=== PATIENT | female | born 1985 | race Caucasian/White ===

== ENCOUNTER → 2016-11-13 | Outpatient (REF) | payer OTHER ==
[~2016-11-13] MED LIST: ANUS2.5C2 PR; COLA100C PO; MILKSUS PO; MOTR200T40 PO; TYLE325T5 PO
== END ==
LOC: M LABDRWCV 16:13
PROVIDERS: ATTEND Physician Assistant
DX: Z87.892 Personal history of anaphylaxis (principal)

== ENCOUNTER 2016-12-13 12:50 | Emergency (ER) | payer OTHER ==
[~2016-12-13 12:50] MED LIST changes: -MOTR200T40 PO; +MOTR200T44 PO
[2016-12-13] MEDS ORDERED: FAMOTIDINE INJ 20MG/2ML VIAL (S0028) As Ordered ONE (13:30)
[2016-12-13] MEDS ORDERED: IPRATROPIUM 0.5MG/ALBUTEROL 2.5MG INH SOL UD 3ML (DUONEB)(J7620) As Ordered ONE ×2 (13:34→13:48)
[2016-12-13 14:08] LABS: BASO % 0.4 % (0.0-1.0); EOS # 0.1 K/mm3 (0.0-0.50); EOS % 0.7 % (0.0-3.0); LARGE UNSTAINED CELL # 0.1 K/mm3 (0.0-0.4); LARGE UNSTAINED CELL % 0.8 % (0.0-4.0); LYMPH # 1.1 K/mm3 (1.5-6.5); LYMPH % 9.7 % (24.0-44.0); MEAN CORPUSCULAR HEMOGLOBIN 30.4 pg (27.0-33.0); MEAN CORPUSCULAR HGB CONC 33.8 g/dl (32.0-36.5); MEAN CORPUSCULAR VOLUME 90.1 fl (80.0-96.0); MONO # 0.3 K/mm3 (0.0-0.8); MONO % 2.9 % (0.0-5.0); NEUTROPHILS # 9.1 K/mm3 (1.8-7.7); NEUTROPHILS % 85.6 % (36.0-66.0); PLATELET COUNT, AUTOMATED 270 k/mm3 (150-450); RED CELL DISTRIBUTION WIDTH 12.2 % (11.5-14.5); WHITE BLOOD COUNT 10.7 K/mm3 (4.0-10.0)
[2016-12-13 14:25] LABS: ANION GAP 8 MEQ/L (8-16); BLOOD UREA NITROGEN 9 MG/DL (7-18); CARBON DIOXIDE LEVEL 27 MEQ/L (21-32); CHLORIDE LEVEL 108 MEQ/L (98-107); CREATININE FOR GFR 0.84 MG/DL (0.55-1.02); GLOMERULAR FILTRATION RATE > 60.0 (>60); GLUCOSE, FASTING 90 MG/DL (70-105); POTASSIUM SERUM 4.1 MEQ/L (3.5-5.1); SODIUM LEVEL 143 MEQ/L (136-145)
--- NOTE | 2016-12-13 14:28 | REP ---
PA and lateral chest: Comparison is 09/20/2016. The lung santillan are clear. The cardiac size is normal The edward, mediastinum, and bony thorax are unremarkable. Impression: Negative PA and lateral chest. There is no interval change. Signed by Filipe Marroquin MD 12/13/2016 02:20 P
--- NOTE | 2016-12-13 15:32 | EDDOCDS ---
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 Onset: The symptoms/episode began/occurred suddenly, 1 hour(s) ago. The patient has a history of a previous allergic reaction. The previous reaction was anaphylactic. Anaphylaxis evaluation, the patient reports or I have noted the following symptoms which indicate a significant risk of anaphylaxis: no signs or symptoms of anaphylaxis were noted. Adult Sepsis Screening: The patient does not have new or worsening altered mentation. Patient's respiratory rate is less than 22. Systolic blood pressure is greater than 100. Patient has a qSOFA score of 0- Negative Sepsis Screen. Suicide/Homicide risk assessment- the patient denies having any suicidal and/or homicidal ideations and does not present with any other emotional, behavioral or mental health complaints. 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 Transition of care: patient was not received from another setting of care. 13:02 Acuity: ANJALI Level 3 ml6 13:02 Acuity: ANJALI Level 4 ml6 13:02 Method Of Arrival: Ambulance ml6 Triage Assessment: 13:02 General: Appears in no apparent distress, Behavior is anxious, cooperative. Pain: ml6 Denies pain. HIV screening NA for this visit Offered previously. Neurological: No deficits noted. Level of Consciousness is awake, alert, Oriented to person, place, time, Import Export Agent are equal bilaterally Moves all extremities. Full function Gait is steady, Speech is normal. Cardiovascular: No deficits noted. Capillary refill < 3 seconds is brisk in bilateral fingers toes Heart tones S1 S2 Edema is absent. Pulses are all present. Rhythm is sinus tachycardia Chest pain is denied. Respiratory: Airway is patent Respiratory effort is even, unlabored, Respiratory pattern is regular, symmetrical, Breath sounds with wheezes expiratory in left lower lobe, right lower lobe, left posterior lower lobe and right posterior lower lobe Reports no respiratory complaints. the patients shortness of breath has resolved. GI: No deficits noted. 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 Claritin 10 mg Oral tab 1 tab once daily (Last dose: 12/13/2016 07:00) 2. ranitidine HCl 150 mg Oral tab 1 tab 2 times per day (Last dose: 12/13/2016 07:00) 3. albuterol sulfate 90 mcg/actuation Nebulizer HFAA 2 puffs every 4-6 hours (Last dose: 12/13/2016 07:00) 4. albuterol sulfate 2.5 mg /3 mL (0.083 %) Nebulizer nebu 3 mL every 8 hours (Last dose: 12/13/2016 07:00) - PMHx: evironmental allergies; - PSHx: none; - Social history: Smoking status: Patient states was never smoker of tobacco. No barriers to communication noted, Speaks appropriately for age. - Family history: Not pertinent. - : The pt / caregiver states he / she is not on anticoagulants. Home medication list is obtained from the patient. - Exposure Risk Screening:: None identified. Screenin:17 Screening information is obtained from the patient. Fall risk: No risks identified. ml6 Assistance ADL's: requires no assistance with activities of daily living. Abuse/DV Screen: The patient / caregiver reports he/she is: not in a situation that causes fear, pain or injury. Nutritional screening: No deficits noted. Advance Directives: Currently, there is no health care proxy. home support is adequate. Assessment: 13:02 General: see triage assessment. Respiratory: Airway is patent Respiratory effort is ml6 even, unlabored, Respiratory pattern is regular, symmetrical, Breath sounds with wheezes expiratory bilaterally. Reports shortness of breath at rest the patients shortness of breath has resolved. 14:05 Reassessment: Patient appears in no apparent distress at this time. Patient states jo3 feeling better. Patient states symptoms have improved. Resting on stretcher in state of comfort. Friend at bedside. . 15:00 General: Appears in no apparent distress, comfortable, Behavior is appropriate for age, jo3 cooperative, pleasant. Neurological: No deficits noted. Level of Consciousness is awake, alert, Oriented to person, place, time. Derm: Skin is pink, warm & dry. Vital Signs: 13:02 BP 143 / 73; Pulse 118; Resp 16; Temp 97.9(O); Pulse Ox 98% on R/A; Weight 56.7 kg (R); ml6 Height 5 ft. 1 in. (154.94 cm); Pain 0/10; 14:15 Pulse 127; Pulse Ox 97% on R/A; ct3 15:19 BP 148 / 72; Pulse 121; Resp 18; Temp 98.9(O); Pulse Ox 97% on R/A; Pain 0/10; dem1 13:02 Body Mass Index 23.62 (56.70 kg, 154.94 cm) ml6 14:15 Pt. walked with pulse oximetry and well tolerated no complaint ct3 Vitals: 13:02 Log In Time N/A - ambulance arrival. ml6 ED Course: 12:51 Patient visited by Agueda Elizabeth, Conveyor Operator. deg 12:51 Patient moved to Waiting deg 12:52 Patient moved to 7 deg 12:59 Sy Anderson MD is Attending Physician. br1 13:02 Inserted peripheral IV: 20gauge IV in right antecubital area Patient tolerated the ml6 procedure well. 13:04 Triage Initiated ml6 13:17 The patient / caregiver is instructed regarding the plan of care and ED course. ml6 13:22 Patient visited by Sy Anderson MD. br1 13:47 Accompanied by Family Member, Patient has correct armband on for positive ct3 identification. Placed in gown. Bed in low position. Call light in reach. Side rails up X2. caterpillar tractor operator on. Pulse ox on. NIBP on. 13:48 Patient visited by Oliva Mello PCA. ct3 14:17 Patient visited by Oliva Mello PCA. ct3 14:52 Patient visited by Sy Anderson MD. br1 14:55 Chest, 2 View (pa\\E\\lat) Returned. EDMS 15:20 Patient visited by Erik Maurice. dem1 15:30 Discontinued IV lock intact, bleeding controlled, pressure dressing applied, No jo3 redness/swelling at site. No procedures done that require assistance. Administered Medications: 13:13 Drug: Famotidine 40 mg [famotidine 10 mg/mL intravenous solution (4 mL)] Route: IVP; jo3 Site: right antecubital; 13:41 Drug: Albuterol-Ipratropium 3 ml [ipratropium-albuterol 0.5 mg-3 mg(2.5 mg base)/3 mL cs15 nebulization soln (3 mL)] Route: Inhalation; 13:51 Drug: Albuterol-Ipratropium 3 ml [ipratropium-albuterol 0.5 mg-3 mg(2.5 mg base)/3 mL cs15 nebulization soln (3 mL)] Route: Inhalation; RT: 13:41 Initial Med Neb Given as ordered. Oxygen is room air. Respiratory: Respiratory effort cs15 is unlabored, Respiratory pattern is shallow breathing Breath sounds are diminished bilaterally. 13:52 Subsequent Med Neb Given as ordered. Respiratory: Breath sounds are diminished cs15 bilaterally. Order Results: Lab Order: CBC with Diff; SPEC'M 12/13/16 13:59 Test: WHITE BLOOD COUNT; Value: 10.7; Range: 4.0-10.0; Abnormal: Above high normal; Units: K/mm3; Status: F Test: RED BLOOD COUNT; Value: 4.68; Range: 4.00-5.40; Units: M/mm3; Status: F Test: HEMOGLOBIN; Value: 14.2; Range: 12.0-16.0; Units: g/dl; Status: F Test: HEMATOCRIT; Value: 42.2; Range: 36.0-47.0; Units: %; Status: F Test: MEAN CORPUSCULAR VOLUME; Value: 90.1; Range: 80.0-96.0; Units: fl; Status: F Test: MEAN CORPUSCULAR HEMOGLOBIN; Value: 30.4; Range: 27.0-33.0; Units: pg; Status: F Test: MEAN CORPUSCULAR HGB CONC; Value: 33.8; Range: 32.0-36.5; Units: g/dl; Status: F Test: RED CELL DISTRIBUTION WIDTH; Value: 12.2; Range: 11.5-14.5; Units: %; Status: F Test: PLATELET COUNT, AUTOMATED; Value: 270; Range: 150-450; Units: k/mm3; Status: F Test: NEUTROPHILS %; Value: 85.6; Range: 36.0-66.0; Abnormal: Above high normal; Units: %; Status: F Test: LYMPH %; Value: 9.7; Range: 24.0-44.0; Abnormal: Below low normal; Units: %; Status: F Test: MONO %; Value: 2.9; Range: 0.0-5.0; Units: %; Status: F Test: EOS %; Value: 0.7; Range: 0.0-3.0; Units: %; Status: F Test: BASO %; Value: 0.4; Range: 0.0-1.0; Units: %; Status: F Test: LARGE UNSTAINED CELL %; Value: 0.8; Range: 0.0-4.0; Units: %; Status: F Test: NEUTROPHILS #; Value: 9.1; Range: 1.8-7.7; Abnormal: Above high normal; Units: K/mm3; Status: F Test: LYMPH #; Value: 1.1; Range: 1.5-6.5; Abnormal: Below low normal; Units: K/mm3; Status: F Test: MONO #; Value: 0.3; Range: 0.0-0.8; Units: K/mm3; Status: F Test: EOS #; Value: 0.1; Range: 0.0-0.50; Units: K/mm3; Status: F Test: BASO #; Value: 0.0; Range: 0.0-0.2; Units: K/mm3; Status: F Test: LARGE UNSTAINED CELL #; Value: 0.1; Range: 0.0-0.4; Units: K/mm3; Status: F Lab Order: [facility]; SPEC'M 12/13/16 13:59 Test: GLUCOSE, FASTING; Value: 90; Range: 70-105; Units: MG/DL; Status: F Test: BLOOD UREA NITROGEN; Value: 9; Range: 7-18; Units: MG/DL; Status: F Test: CREATININE FOR GFR; Value: 0.84; Range: 0.55-1.02; Units: MG/DL; Status: F Test: GLOMERULAR FILTRATION RATE; Value: > 60.0; Range: >60; Status: F Test: SODIUM LEVEL; Value: 143; Range: 136-145; Units: MEQ/L; Status: F Test: POTASSIUM SERUM; Value: 4.1; Range: 3.5-5.1; Units: MEQ/L; Status: F Test: CHLORIDE LEVEL; Value: 108; Range: 98-107; Abnormal: Above high normal; Units: MEQ/L; Status: F Test: CARBON DIOXIDE LEVEL; Value: 27; Range: 21-32; Units: MEQ/L; Status: F Test: ANION GAP; Value: 8; Range: 8-16; Units: MEQ/L; Status: F Test: CALCIUM LEVEL; Value: 9.0; Range: 8.5-10.1; Units: MG/DL; Status: F Test Note: ; Units are mL/min/1.73 m2 Chronic Kidney Disease Staging per NKF: Stage I & II GFR >=60 Normal to Mildly Decreased Stage III GFR 30-59 Moderately Decreased Stage IV GFR 15-29 Severely Decreased Stage V GFR <15 Very Little GFR Left ESRD GFR <15 on CLOTHING SUPERVISOR Radiology Order: Chest, 2 View (pa\\E\\lat) Test: Chest, 2 View (pa\\E\\lat) REASON FOR EXAMINATION: Shortness of Breath; PA and lateral chest:; ; Comparison is 09/20/2016.; ; The lung santillan are clear. The cardiac size is normal; ; The edward, mediastinum, and bony thorax are unremarkable.; ; Impression:; ; Negative PA and lateral chest. There is no interval change.; ; ; Signed by; Filipe Marroquin MD 12/13/2016 02:20 P; Outcome: 14:54 Discharge ordered by Provider. br1 15:30 Discharge Assessment: Patient awake, alert and oriented x 3. No cognitive and/or jo3 functional deficits noted. Patient verbalized understanding of disposition instructions. patient administered narcotics - no. The following High Risk Discharge criteria are identified: None. Discharged to home ambulatory, with friend. Condition: stable Condition: improved. Discharge instructions given to patient, Instructed on discharge instructions, follow up and referral plans. medication usage, Demonstrated understanding of instructions, medications, Pt was receptive of discharge instructions/ teaching. No special radiology studies were completed. Property sent home with patient. 15:32 Patient left the ED. jo3 Signatures: Dispatcher [employer] EDMS Agueda Elizabeth, Conveyor Operator Unit deg Hillary Lal,RN RN jo3 Sy Anderson MD MD br1 Rodriguez Shaw, JASSI RN ml6 Oliva Mello, INDEPENDENT BEAUTY CONSULTANT INDEPENDENT BEAUTY CONSULTANT ct3 Josafat, Erik dem1 Santhosh Denis,RT RT cs15 MTDD
--- NOTE | 2016-12-13 15:32 | EDDOCDS ---
Physician Documentation [facility] Name: Sabi Greene Age: 31 yrs Sex: Female : 1985 Arrival Date: 12/13/2016 Time: 12:50 Bed 7 Private MD: Disposition: 12/13/16 14:54 Discharged to Home/Self Care. Impression: Allergic urticaria. - Condition is Stable. - Discharge Instructions: Hives. - Medication Reconciliation, Local Pharmacy Hours form. - Follow up: Private Physician; When: 2 - 3 days; Reason: Recheck today's complaints. - Problem is new. - Symptoms are resolved. - Notes: You were seen in the ED for rash and shortness of breath concerning for allergic reaction. Bloodwork, EKG of the heart and chest Xray showed no other acute findings. You were treated and improved with medications. As you are feeling better you may return home. Avoid the building you were in as it was a possible source of environmental allergy. You may take Benadryl as needed every 6 hours for rash or itching. Call your primary doctor to arrange to be seen for recheck in the office. Return to the ED for any return of trouble breathing, swelling of the lips, tongue, or throat, or any other concerns. Historical: - Allergies: Aspirin; mold (Anaphylaxis); - Home Meds: 1. Claritin 10 mg Oral tab 1 tab once daily (Last dose: 12/13/2016 07:00) 2. ranitidine HCl 150 mg Oral tab 1 tab 2 times per day (Last dose: 12/13/2016 07:00) 3. albuterol sulfate 90 mcg/actuation Nebulizer HFAA 2 puffs every 4-6 hours (Last dose: 12/13/2016 07:00) 4. albuterol sulfate 2.5 mg /3 mL (0.083 %) Nebulizer nebu 3 mL every 8 hours (Last dose: 12/13/2016 07:00) - PMHx: evironmental allergies; - PSHx: none; - Social history: Smoking status: Patient states was never smoker of tobacco. No barriers to communication noted, Speaks appropriately for age. - Family history: Not pertinent. - : The pt / caregiver states he / she is not on anticoagulants. Home medication list is obtained from the patient. - Exposure Risk Screening:: None identified. RECORDS MANAGEMENT COORDINATOR: 12/13 13:02 LMP 11/21/2016 ml6 Vital Signs: 13:02 BP 143 / 73; Pulse 118; Resp 16; Temp 97.9(O); Pulse Ox 98% on R/A; Weight 56.7 kg / ml6 125 lbs (R); Height 5 ft. 1 in. (154.94 cm); Pain 0/10; 14:15 Pulse 127; Pulse Ox 97% on R/A; ct3 15:19 BP 148 / 72; Pulse 121; Resp 18; Temp 98.9(O); Pulse Ox 97% on R/A; Pain 0/10; dem1 13:02 Body Mass Index 23.62 (56.70 kg, 154.94 cm) ml6 14:15 Pt. walked with pulse oximetry and well tolerated no complaint ct3 MDM: 13:23 IV Saline Lock ordered. br1 13:23 Director Content Marketing/Pulse Ox/q 30 min VS ordered. br1 13:23 Famotidine 40 mg IVP once ordered. br1 13:23 Albuterol-Ipratropium 3 ml Inhalation once ordered. br1 13:23 Call Respiratory ordered. br1 13:24 Call Respiratory complete. deg 13:24 CBC with Diff Ordered. EDMS 13:24 BMP Ordered. EDMS 13:25 Chest, 2 View (pa\E\lat) Ordered. EDMS 13:26 ECG WITH READING ER PHYS+CARDIAG ordered. EDMS 13:48 Albuterol-Ipratropium 3 ml Inhalation once ordered. br1 14:02 Ambulate Patient wth Pulse Oximetry ordered. br1 14:49 CBC with Diff Reviewed. br1 14:49 BMP Reviewed. br1 14:49 Financial registration complete. lg Administered Medications: 13:13 Drug: Famotidine 40 mg [famotidine 10 mg/mL intravenous solution (4 mL)] Route: IVP; jo3 Site: right antecubital; 13:41 Drug: Albuterol-Ipratropium 3 ml [ipratropium-albuterol 0.5 mg-3 mg(2.5 mg base)/3 mL cs15 nebulization soln (3 mL)] Route: Inhalation; 13:51 Drug: Albuterol-Ipratropium 3 ml [ipratropium-albuterol 0.5 mg-3 mg(2.5 mg base)/3 mL cs15 nebulization soln (3 mL)] Route: Inhalation; Signatures: Dispatcher [employer] EDMS Agueda Elizabeth, Montessori Toddler Teacher Unit deg Cal Kay, Reg Reg lg Hillary Lal RN RN jo3 Sy Anderson MD MD br1 Rodriguez Shaw RN RN ml6 Santhosh Denis RT cs15 MTDD
--- NOTE | 2016-12-14 21:04 | ECGEPIP ---
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
--- NOTE | 2016-12-15 16:32 | EDDOCDS ---
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 Onset: The symptoms/episode began/occurred suddenly, 1 hour(s) ago. The patient has a history of a previous allergic reaction. The previous reaction was anaphylactic. Anaphylaxis evaluation, the patient reports or I have noted the following symptoms which indicate a significant risk of anaphylaxis: no signs or symptoms of anaphylaxis were noted. Adult Sepsis Screening: The patient does not have new or worsening altered mentation. Patient's respiratory rate is less than 22. Systolic blood pressure is greater than 100. Patient has a qSOFA score of 0- Negative Sepsis Screen. Suicide/Homicide risk assessment- the patient denies having any suicidal and/or homicidal ideations and does not present with any other emotional, behavioral or mental health complaints. Status: Patient is not a emergency service worker or dependent. Transition of care: patient was not received from another setting of care. 13:02 Acuity: ANJALI Level 3 ml6 13:02 Acuity: ANJALI Level 4 ml6 13:02 Method Of Arrival: Ambulance ml6 Triage Assessment: 13:02 General: Appears in no apparent distress, Behavior is anxious, cooperative. Pain: ml6 Denies pain. HIV screening NA for this visit Offered previously. Neurological: No deficits noted. Level of Consciousness is awake, alert, Oriented to person, place, time, Exercise Equipment Repair Technician are equal bilaterally Moves all extremities. Full function Gait is steady, Speech is normal. Cardiovascular: No deficits noted. Capillary refill < 3 seconds is brisk in bilateral fingers toes Heart tones S1 S2 Edema is absent. Pulses are all present. Rhythm is sinus tachycardia Chest pain is denied. Respiratory: Airway is patent Respiratory effort is even, unlabored, Respiratory pattern is regular, symmetrical, Breath sounds with wheezes expiratory in left lower lobe, right lower lobe, left posterior lower lobe and right posterior lower lobe Reports no respiratory complaints. the patients shortness of breath has resolved. GI: No deficits noted. MALTED MILK MIXER: 13:02 LMP 11/21/2016 ml6 Historical: - Allergies: Aspirin; mold (Anaphylaxis); - Home Meds: 1. Claritin 10 mg Oral tab 1 tab once daily (Last dose: 12/13/2016 07:00) 2. ranitidine HCl 150 mg Oral tab 1 tab 2 times per day (Last dose: 12/13/2016 07:00) 3. albuterol sulfate 90 mcg/actuation Nebulizer HFAA 2 puffs every 4-6 hours (Last dose: 12/13/2016 07:00) 4. albuterol sulfate 2.5 mg /3 mL (0.083 %) Nebulizer nebu 3 mL every 8 hours (Last dose: 12/13/2016 07:00) - PMHx: evironmental allergies; - PSHx: none; - Social history: Smoking status: Patient states was never smoker of tobacco. No barriers to communication noted, Speaks appropriately for age. - Family history: Not pertinent. - : The pt / caregiver states he / she is not on anticoagulants. Home medication list is obtained from the patient. - Exposure Risk Screening:: None identified. Screenin:17 Screening information is obtained from the patient. Fall risk: No risks identified. ml6 Assistance ADL's: requires no assistance with activities of daily living. Abuse/DV Screen: The patient / caregiver reports he/she is: not in a situation that causes fear, pain or injury. Nutritional screening: No deficits noted. Advance Directives: Currently, there is no health care proxy. home support is adequate. Assessment: 13:02 General: see triage assessment. Respiratory: Airway is patent Respiratory effort is ml6 even, unlabored, Respiratory pattern is regular, symmetrical, Breath sounds with wheezes expiratory bilaterally. Reports shortness of breath at rest the patients shortness of breath has resolved. 14:05 Reassessment: Patient appears in no apparent distress at this time. Patient states jo3 feeling better. Patient states symptoms have improved. Resting on stretcher in state of comfort. Friend at bedside. . 15:00 General: Appears in no apparent distress, comfortable, Behavior is appropriate for age, jo3 cooperative, pleasant. Neurological: No deficits noted. Level of Consciousness is awake, alert, Oriented to person, place, time. Derm: Skin is pink, warm & dry. Vital Signs: 13:02 BP 143 / 73; Pulse 118; Resp 16; Temp 97.9(O); Pulse Ox 98% on R/A; Weight 56.7 kg (R); ml6 Height 5 ft. 1 in. (154.94 cm); Pain 0/10; 14:15 Pulse 127; Pulse Ox 97% on R/A; ct3 15:19 BP 148 / 72; Pulse 121; Resp 18; Temp 98.9(O); Pulse Ox 97% on R/A; Pain 0/10; dem1 13:02 Body Mass Index 23.62 (56.70 kg, 154.94 cm) ml6 14:15 Pt. walked with pulse oximetry and well tolerated no complaint ct3 Vitals: 13:02 Log In Time N/A - ambulance arrival. ml6 ED Course: 12:51 Patient visited by Agueda Elizabeth, Computer Science Professor. deg 12:51 Patient moved to Waiting deg 12:52 Patient moved to 7 deg 12:59 Reggie Anderson MD is Attending Physician. br1 13:02 Inserted peripheral IV: 20gauge IV in right antecubital area Patient tolerated the ml6 procedure well. 13:04 Triage Initiated ml6 13:17 The patient / caregiver is instructed regarding the plan of care and ED course. ml6 13:22 Patient visited by Reggie Anderson MD. br1 13:47 Accompanied by Family Member, Patient has correct armband on for positive ct3 identification. Placed in gown. Bed in low position. Call light in reach. Side rails up X2. a&p technician on. Pulse ox on. NIBP on. 13:48 Patient visited by Oliva Mello PCA. ct3 14:17 Patient visited by Oliva Mello PCA. ct3 14:52 Patient visited by Reggie Anderson MD. br1 14:55 Chest, 2 View (pa\\E\\lat) Returned. EDMS 15:20 Patient visited by Erik Maurice. dem1 15:30 Discontinued IV lock intact, bleeding controlled, pressure dressing applied, No jo3 redness/swelling at site. No procedures done that require assistance. 15:38 [facility] Payment Agreement was scanned into [employer]ing[employer] and attached to record. lg 12/14 12:02 T-Sheet-- Draft Copy was scanned into [employer] and attached to record. gb 12:02 ECG/EKG was scanned into [employer] and attached to record. gb 21:17 EKG-ADULT Returned. EDMS Administered Medications: 12/13 13:13 Drug: Famotidine 40 mg [famotidine 10 mg/mL intravenous solution (4 mL)] Route: IVP; jo3 Site: right antecubital; 13:41 Drug: Albuterol-Ipratropium 3 ml [ipratropium-albuterol 0.5 mg-3 mg(2.5 mg base)/3 mL cs15 nebulization soln (3 mL)] Route: Inhalation; 13:51 Drug: Albuterol-Ipratropium 3 ml [ipratropium-albuterol 0.5 mg-3 mg(2.5 mg base)/3 mL cs15 nebulization soln (3 mL)] Route: Inhalation; RT: 13:41 Initial Med Neb Given as ordered. Oxygen is room air. Respiratory: Respiratory effort cs15 is unlabored, Respiratory pattern is shallow breathing Breath sounds are diminished bilaterally. 13:52 Subsequent Med Neb Given as ordered. Respiratory: Breath sounds are diminished cs15 bilaterally. Order Results: Lab Order: CBC with Diff; SPEC'M 12/13/16 13:59 Test: WHITE BLOOD COUNT; Value: 10.7; Range: 4.0-10.0; Abnormal: Above high normal; Units: K/mm3; Status: F Test: RED BLOOD COUNT; Value: 4.68; Range: 4.00-5.40; Units: M/mm3; Status: F Test: HEMOGLOBIN; Value: 14.2; Range: 12.0-16.0; Units: g/dl; Status: F Test: HEMATOCRIT; Value: 42.2; Range: 36.0-47.0; Units: %; Status: F Test: MEAN CORPUSCULAR VOLUME; Value: 90.1; Range: 80.0-96.0; Units: fl; Status: F Test: MEAN CORPUSCULAR HEMOGLOBIN; Value: 30.4; Range: 27.0-33.0; Units: pg; Status: F Test: MEAN CORPUSCULAR HGB CONC; Value: 33.8; Range: 32.0-36.5; Units: g/dl; Status: F Test: RED CELL DISTRIBUTION WIDTH; Value: 12.2; Range: 11.5-14.5; Units: %; Status: F Test: PLATELET COUNT, AUTOMATED; Value: 270; Range: 150-450; Units: k/mm3; Status: F Test: NEUTROPHILS %; Value: 85.6; Range: 36.0-66.0; Abnormal: Above high normal; Units: %; Status: F Test: LYMPH %; Value: 9.7; Range: 24.0-44.0; Abnormal: Below low normal; Units: %; Status: F Test: MONO %; Value: 2.9; Range: 0.0-5.0; Units: %; Status: F Test: EOS %; Value: 0.7; Range: 0.0-3.0; Units: %; Status: F Test: BASO %; Value: 0.4; Range: 0.0-1.0; Units: %; Status: F Test: LARGE UNSTAINED CELL %; Value: 0.8; Range: 0.0-4.0; Units: %; Status: F Test: NEUTROPHILS #; Value: 9.1; Range: 1.8-7.7; Abnormal: Above high normal; Units: K/mm3; Status: F Test: LYMPH #; Value: 1.1; Range: 1.5-6.5; Abnormal: Below low normal; Units: K/mm3; Status: F Test: MONO #; Value: 0.3; Range: 0.0-0.8; Units: K/mm3; Status: F Test: EOS #; Value: 0.1; Range: 0.0-0.50; Units: K/mm3; Status: F Test: BASO #; Value: 0.0; Range: 0.0-0.2; Units: K/mm3; Status: F Test: LARGE UNSTAINED CELL #; Value: 0.1; Range: 0.0-0.4; Units: K/mm3; Status: F Lab Order: [facility]; SPEC'M 12/13/16 13:59 Test: GLUCOSE, FASTING; Value: 90; Range: 70-105; Units: MG/DL; Status: F Test: BLOOD UREA NITROGEN; Value: 9; Range: 7-18; Units: MG/DL; Status: F Test: CREATININE FOR GFR; Value: 0.84; Range: 0.55-1.02; Units: MG/DL; Status: F Test: GLOMERULAR FILTRATION RATE; Value: > 60.0; Range: >60; Status: F Test: SODIUM LEVEL; Value: 143; Range: 136-145; Units: MEQ/L; Status: F Test: POTASSIUM SERUM; Value: 4.1; Range: 3.5-5.1; Units: MEQ/L; Status: F Test: CHLORIDE LEVEL; Value: 108; Range: 98-107; Abnormal: Above high normal; Units: MEQ/L; Status: F Test: CARBON DIOXIDE LEVEL; Value: 27; Range: 21-32; Units: MEQ/L; Status: F Test: ANION GAP; Value: 8; Range: 8-16; Units: MEQ/L; Status: F Test: CALCIUM LEVEL; Value: 9.0; Range: 8.5-10.1; Units: MG/DL; Status: F Test Note: ; Units are mL/min/1.73 m2 Chronic Kidney Disease Staging per NKF: Stage I & II GFR >=60 Normal to Mildly Decreased Stage III GFR 30-59 Moderately Decreased Stage IV GFR 15-29 Severely Decreased Stage V GFR <15 Very Little GFR Left ESRD GFR <15 on MORTGAGE LOAN ORIGINATOR Radiology Order: EKG-ADULT Test: EKG-ADULT REASON FOR EXAMINATION: Shortness of Breath; Stationary ECG Study; 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 The cardiac size is normal; ; The edward, mediastinum, and bony thorax are unremarkable.; ; Impression:; ; Negative PA and lateral chest. There is no interval change.; ; ; Signed by; Filipe Marroquin MD 12/13/2016 02:20 P; Outcome: 14:54 Discharge ordered by Provider. br1 15:30 Discharge Assessment: Patient awake, alert and oriented x 3. No cognitive and/or jo3 functional deficits noted. Patient verbalized understanding of disposition instructions. patient administered narcotics - no. The following High Risk Discharge criteria are identified: None. Discharged to home ambulatory, with friend. Condition: stable Condition: improved. Discharge instructions given to patient, Instructed on discharge instructions, follow up and referral plans. medication usage, Demonstrated understanding of instructions, medications, Pt was receptive of discharge instructions/ teaching. No special radiology studies were completed. Property sent home with patient. 15:32 Patient left the ED. jo3 Signatures: Dispatcher [employer] EDMS Agueda Elizabeth, Computer Science Professor Unit deg Simi Gu, Reg Reg gb Cal Kay, Reg Reg lg Hillary Lal,RN RN jo3 Reggie Anderson MD MD br1 Rodriguez Shaw RN RN ml6 Oliva Mello, MANAGER MANAGER ct3 Erik Maurice dem1 Santhosh Denis,RT RT cs15 Chart Complete MTDD
--- NOTE | 2016-12-15 16:32 | EDDOCDS ---
Physician Documentation [facility] Name: Sabi Greene Age: 31 yrs Sex: Female : 1985 Arrival Date: 12/13/2016 Time: 12:50 Bed 7 Private MD: Disposition: 12/13/16 14:54 Discharged to Home/Self Care. Impression: Allergic urticaria. - Condition is Stable. - Discharge Instructions: Hives. - Medication Reconciliation, Local Pharmacy Hours form. - Follow up: Private Physician; When: 2 - 3 days; Reason: Recheck today's complaints. - Problem is new. - Symptoms are resolved. - Notes: You were seen in the ED for rash and shortness of breath concerning for allergic reaction. Bloodwork, EKG of the heart and chest Xray showed no other acute findings. You were treated and improved with medications. As you are feeling better you may return home. Avoid the building you were in as it was a possible source of environmental allergy. You may take Benadryl as needed every 6 hours for rash or itching. Call your primary doctor to arrange to be seen for recheck in the office. Return to the ED for any return of trouble breathing, swelling of the lips, tongue, or throat, or any other concerns. Historical: - Allergies: Aspirin; mold (Anaphylaxis); - Home Meds: 1. Claritin 10 mg Oral tab 1 tab once daily (Last dose: 12/13/2016 07:00) 2. ranitidine HCl 150 mg Oral tab 1 tab 2 times per day (Last dose: 12/13/2016 07:00) 3. albuterol sulfate 90 mcg/actuation Nebulizer HFAA 2 puffs every 4-6 hours (Last dose: 12/13/2016 07:00) 4. albuterol sulfate 2.5 mg /3 mL (0.083 %) Nebulizer nebu 3 mL every 8 hours (Last dose: 12/13/2016 07:00) - PMHx: evironmental allergies; - PSHx: none; - Social history: Smoking status: Patient states was never smoker of tobacco. No barriers to communication noted, Speaks appropriately for age. - Family history: Not pertinent. - : The pt / caregiver states he / she is not on anticoagulants. Home medication list is obtained from the patient. - Exposure Risk Screening:: None identified. 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 1 in. (154.94 cm); Pain 0/10; 14:15 Pulse 127; Pulse Ox 97% on R/A; ct3 15:19 BP 148 / 72; Pulse 121; Resp 18; Temp 98.9(O); Pulse Ox 97% on R/A; Pain 0/10; dem1 13:02 Body Mass Index 23.62 (56.70 kg, 154.94 cm) ml6 14:15 Pt. walked with pulse oximetry and well tolerated no complaint ct3 MDM: 13:23 IV Saline Lock ordered. br1 13:23 Rn Mobile/Pulse Ox/q 30 min VS ordered. br1 13:23 Famotidine 40 mg IVP once ordered. br1 13:23 Albuterol-Ipratropium 3 ml Inhalation once ordered. br1 13:23 Call Respiratory ordered. br1 13:24 Call Respiratory complete. deg 13:24 CBC with Diff Ordered. EDMS 13:24 BMP Ordered. EDMS 13:25 Chest, 2 View (pa\E\lat) Ordered. EDMS 13:26 ECG WITH READING ER PHYS+CARDIAG ordered. EDMS 13:48 Albuterol-Ipratropium 3 ml Inhalation once ordered. br1 14:02 Ambulate Patient wth Pulse Oximetry ordered. br1 14:49 CBC with Diff Reviewed. br1 14:49 BMP Reviewed. br1 14:49 Financial registration complete. lg 15:38 [facility] Payment Agreement was scanned into [employer] and attached to record. lg 12/14 12:02 T-Sheet-- Draft Copy was scanned into [employer] and attached to record. gb 12:02 ECG/EKG was scanned into [employer] and attached to record. gb Administered Medications: 12/13 13:13 Drug: Famotidine 40 mg [famotidine 10 mg/mL intravenous solution (4 mL)] Route: IVP; jo3 Site: right antecubital; 13:41 Drug: Albuterol-Ipratropium 3 ml [ipratropium-albuterol 0.5 mg-3 mg(2.5 mg base)/3 mL cs15 nebulization soln (3 mL)] Route: Inhalation; 13:51 Drug: Albuterol-Ipratropium 3 ml [ipratropium-albuterol 0.5 mg-3 mg(2.5 mg base)/3 mL cs15 nebulization soln (3 mL)] Route: Inhalation; Signatures: Dispatcher [employer] EDMS Agueda Elizabeth, Break Off Worker Unit deg Simi Gu, Reg Reg gb Cal Kay, Reg Reg lg Hillary LalRN RN jo3 Sy Anderson MD MD br1 Rodriguez Shaw, RN RN ml6 Santhosh Denis RT cs15 The chart was reviewed and I authenticate all verbal orders and agree with the evaluation and treatment provided.Attachments: 15:38 [facility] Payment Agreement lg 12/14 12:02 T-Sheet-- Draft Copy gb 12:02 ECG/EKG gb Chart Complete MTDD
--- NOTE | 2016-12-15 16:32 | EDDOCDS ---
Physician Documentation [facility] Name: Sabi Greene Age: 31 yrs Sex: Female : 1985 Arrival Date: 12/13/2016 Time: 12:50 Bed 7 Private MD: Disposition: 12/13/16 14:54 Discharged to Home/Self Care. Impression: Allergic urticaria. - Condition is Stable. - Discharge Instructions: Hives. - Medication Reconciliation, Local Pharmacy Hours form. - Follow up: Private Physician; When: 2 - 3 days; Reason: Recheck today's complaints. - Problem is new. - Symptoms are resolved. - Notes: You were seen in the ED for rash and shortness of breath concerning for allergic reaction. Bloodwork, EKG of the heart and chest Xray showed no other acute findings. You were treated and improved with medications. As you are feeling better you may return home. Avoid the building you were in as it was a possible source of environmental allergy. You may take Benadryl as needed every 6 hours for rash or itching. Call your primary doctor to arrange to be seen for recheck in the office. Return to the ED for any return of trouble breathing, swelling of the lips, tongue, or throat, or any other concerns. Historical: - Allergies: Aspirin; mold (Anaphylaxis); - Home Meds: 1. Claritin 10 mg Oral tab 1 tab once daily (Last dose: 12/13/2016 07:00) 2. ranitidine HCl 150 mg Oral tab 1 tab 2 times per day (Last dose: 12/13/2016 07:00) 3. albuterol sulfate 90 mcg/actuation Nebulizer HFAA 2 puffs every 4-6 hours (Last dose: 12/13/2016 07:00) 4. albuterol sulfate 2.5 mg /3 mL (0.083 %) Nebulizer nebu 3 mL every 8 hours (Last dose: 12/13/2016 07:00) - PMHx: evironmental allergies; - PSHx: none; - Social history: Smoking status: Patient states was never smoker of tobacco. No barriers to communication noted, Speaks appropriately for age. - Family history: Not pertinent. - : The pt / caregiver states he / she is not on anticoagulants. Home medication list is obtained from the patient. - Exposure Risk Screening:: None identified. HUMAN RESOURCES CLERK: 12/13 13:02 LMP 11/21/2016 ml6 Vital Signs: 13:02 BP 143 / 73; Pulse 118; Resp 16; Temp 97.9(O); Pulse Ox 98% on R/A; Weight 56.7 kg / ml6 125 lbs (R); Height 5 ft. 1 in. (154.94 cm); Pain 0/10; 14:15 Pulse 127; Pulse Ox 97% on R/A; ct3 15:19 BP 148 / 72; Pulse 121; Resp 18; Temp 98.9(O); Pulse Ox 97% on R/A; Pain 0/10; dem1 13:02 Body Mass Index 23.62 (56.70 kg, 154.94 cm) ml6 14:15 Pt. walked with pulse oximetry and well tolerated no complaint ct3 MDM: 13:23 IV Saline Lock ordered. br1 13:23 Scrap Iron Loader/Pulse Ox/q 30 min VS ordered. br1 13:23 Famotidine 40 mg IVP once ordered. br1 13:23 Albuterol-Ipratropium 3 ml Inhalation once ordered. br1 13:23 Call Respiratory ordered. br1 13:24 Call Respiratory complete. deg 13:24 CBC with Diff Ordered. EDMS 13:24 BMP Ordered. EDMS 13:25 Chest, 2 View (pa\E\lat) Ordered. EDMS 13:26 ECG WITH READING ER PHYS+CARDIAG ordered. EDMS 13:48 Albuterol-Ipratropium 3 ml Inhalation once ordered. br1 14:02 Ambulate Patient wth Pulse Oximetry ordered. br1 14:49 CBC with Diff Reviewed. br1 14:49 BMP Reviewed. br1 14:49 Financial registration complete. lg 15:38 [facility] Payment Agreement was scanned into [employer] and attached to record. lg 12/14 12:02 T-Sheet-- Draft Copy was scanned into [employer] and attached to record. gb 12:02 ECG/EKG was scanned into [employer] and attached to record. gb Administered Medications: 12/13 13:13 Drug: Famotidine 40 mg [famotidine 10 mg/mL intravenous solution (4 mL)] Route: IVP; jo3 Site: right antecubital; 13:41 Drug: Albuterol-Ipratropium 3 ml [ipratropium-albuterol 0.5 mg-3 mg(2.5 mg base)/3 mL cs15 nebulization soln (3 mL)] Route: Inhalation; 13:51 Drug: Albuterol-Ipratropium 3 ml [ipratropium-albuterol 0.5 mg-3 mg(2.5 mg base)/3 mL cs15 nebulization soln (3 mL)] Route: Inhalation; Signatures: Dispatcher [employer] EDMS Agueda Elizabeth, Cardiopulmonary Technician Unit deg Simi Gu, Reg Reg gb Cal Kay, Reg Reg lg Hillary LalRN RN jo3 Sy Anderson MD MD br1 Rodriguez Shaw, RN RN ml6 Santhosh Denis RT cs15 The chart was reviewed and I authenticate all verbal orders and agree with the evaluation and treatment provided.Attachments: 15:38 [facility] Payment Agreement lg 12/14 12:02 T-Sheet-- Draft Copy gb 12:02 ECG/EKG gb Chart Complete MTDD
== END 2016-12-13 15:32 | disposition home or self-care (01) ==
LOC: M ED 12:50
DX: L50.0 Allergic urticaria (principal); R06.02 Shortness of breath; J30.2 Other seasonal allergic rhinitis; Z79.899 Other long term (current) drug therapy; Z88.6 Allergy status to analgesic agent; Z91.048 Other nonmedicinal substance allergy status

== ENCOUNTER 2017-01-27 23:21 | Emergency (ER) | payer OTHER ==
[~2017-01-27 23:21] MED LIST changes: -COLA100C PO; +COLA100C3 PO
[2017-01-27] MEDS ORDERED: RANI1TAB38 PO (23:46)
[2017-01-27] MEDS ORDERED: BENA25TA9 PO (23:46)
[2017-01-27] MEDS ORDERED: PRED20TA PO (23:46)
[2017-01-27] MEDS ORDERED: CLAR1TAB2 PO (23:46)
[2017-01-27] MEDS ORDERED: ALBU83IN INH (23:46)
[2017-01-28 01:22] VITALS: BP 128/62
== END 2017-01-28 01:23 | disposition home or self-care (01) ==
LOC: M ED 01-28 01:14
DX: F43.0 Acute stress reaction (principal); Z79.899 Other long term (current) drug therapy; Z79.52 Long term (current) use of systemic steroids; Z88.6 Allergy status to analgesic agent; Z91.018 Allergy to other foods; E73.9 Lactose intolerance, unspecified; J30.89 Other allergic rhinitis

== ENCOUNTER 2018-03-27 11:45 | Emergency (ER) | payer OTHER | END 2018-03-27 13:22 | disposition home or self-care (01) | LOC: M ED 11:45 | DX: S60.211A Contusion of right wrist, initial encounter (principal); Y04.8XXA Assault by other bodily force, initial encounter; Y07.59 Other non-family member, perpetrator of maltreatment and neglect; Y92.59 Other trade areas as the place of occurrence of the external cause; Y99.0 Civilian activity done for income or pay; E73.9 Lactose intolerance, unspecified; Z88.8 Allergy status to other drugs, medicaments and biological substances; Z91.048 Other nonmedicinal substance allergy status | CPT/HCPCS: 73110 ==

== ENCOUNTER 2018-12-08 08:00 | Emergency (ER) | payer OTHER ==
[~2018-12-08] VITALS: Ht 154.9 cm; Wt 59.5 kg
[~2018-12-08 08:00] MED LIST changes: +ALBU83IN INH; +BENA25TA10 PO; +CLAR1TAB2 PO; -COLA100C3 PO; +COLA100C5 PO; +MILK120011 PO; -MILKSUS PO; +PRED20TA PO; +RANI1TAB38 PO
[2018-12-08] MEDS ORDERED: AMOX875T (08:07)
[2018-12-08] MEDS ORDERED: NS 1,000 ML IV SCH (08:30)
[2018-12-08] MEDS ORDERED: ONDANSETRON 4MG/2ML VIAL (J2405) IV ONE (08:30)
[2018-12-08] MEDS ORDERED: MORPHINE 2 MG/ML 1ML SYRINGE (J2270) IV PRN (08:30)
[2018-12-08 08:41] LABS: BASO % 0.6 % (0.0-1.0); EOS # 0.1 10^3/uL (0.0-0.50); EOS % 2.1 % (0.0-3.0); HEMATOCRIT 40.5 % (36.0-47.0); HEMOGLOBIN 14.1 g/dl (12.0-15.5); LYMPH # 1.5 10^3/uL (1.5-4.5); LYMPH % 22.3 % (24.0-44.0); MEAN CORPUSCULAR HEMOGLOBIN 31.1 pg (27.0-33.0); MEAN CORPUSCULAR HGB CONC 34.8 g/dl (32.0-36.5); MEAN CORPUSCULAR VOLUME 89.2 fl (80.0-96.0); MONO # 0.5 10^3/uL (0.0-0.8); MONO % 7.7 % (0.0-5.0); NEUTROPHILS # 4.6 10^3/uL (1.8-7.7); PLATELET COUNT, AUTOMATED 251 10^3/uL (150-450); RED BLOOD COUNT 4.54 10^6/uL (4.00-5.40); WHITE BLOOD COUNT 6.8 10^3/uL (4.0-10.0)
[2018-12-08 08:50] LABS: HCG, SERUM QUALITATIVE NEGATIVE (NEGATIVE)
[2018-12-08 08:58] LABS: ALT/SGPT 15 U/L (12-78); BILIRUBIN,DIRECT 0.2 MG/DL (0.0-0.2); BILIRUBIN,TOTAL 0.8 MG/DL (0.2-1.0); BLOOD UREA NITROGEN 12 MG/DL (7-18); CALCIUM LEVEL 8.9 MG/DL (8.5-10.1); CARBON DIOXIDE LEVEL 29 MEQ/L (21-32); CHLORIDE LEVEL 102 MEQ/L (98-107); CK-MB VALUE MASS < 1.0 NG/ML (<3.6); CPK CREATINE PHOSPHOKINASE 41 U/L (26-192); CREATININE FOR GFR 0.77 MG/DL (0.55-1.30); FREE T4 1.05 NG/DL (0.76-1.46); GLOMERULAR FILTRATION RATE > 60.0 (>60); GLUCOSE, FASTING 115 MG/DL (70-100); LIPASE 150 U/L (73-393); MB/CK RELATIVE INDEX 2.44 (< OR =4); SODIUM LEVEL 139 MEQ/L (136-145); TOTAL PROTEIN 7.2 GM/DL (6.4-8.2); TROPONIN I < 0.02 NG/ML (< 0.10)
--- NOTE | 2018-12-08 09:38 | REP ---
Portable chest: Single view. History: Chest pain. Comparison study: December 13, 2016. Findings: EKG monitoring electrodes overlie the chest. Lungs are well inflated and clear. Pleural angles are sharp. Heart size is normal. Pulmonary vasculature is not increased. Impression: Negative portable chest x-ray. Electronically Signed by Stevie Hernandez MD 12/08/2018 09:29 A
[2018-12-08] MEDS ORDERED: ISOVUE-370 76% 100ML VIAL (Q9967) As Ordered ONE (11:56)
--- NOTE | 2018-12-08 12:27 | REP ---
CT pulmonary angiogram: With IV contrast. History: Chest pain. Comparison studies: Today's chest x-ray. Comparison chest CT study is from September 26, 2016. Contrast dose: 75 ML of Isovue [address] technique: Helical scanning is acquired and overlapping 1.5 mm and contiguous 3 mm axial images are reformatted. In addition, maximum intensity projection and multiplanar re-formation images are generated in sagittal and coronal imaging projections. CT pulmonary angiographic findings: There is good opacification of the pulmonary arterial tree. There is no CT evidence of pulmonary embolism. Thoracic aorta enhances homogeneously and is normal in course and caliber. There is no evidence of aneurysm or dissection. No hilar or mediastinal mass or adenopathy is observed. No pleural or pericardial effusion is seen. The lung santillan are clear. No bony abnormality is seen. Impression: No CT evidence of pulmonary embolus. Negative CT pulmonary angiogram. Electronically Signed by Stevie Hernandez MD 12/08/2018 12:18 P
[2018-12-08] MEDS ORDERED: NS 1,000 ML IV ONE (13:00)
[2018-12-08 13:07] LABS: CK-MB VALUE MASS < 1.0 NG/ML (<3.6); CPK CREATINE PHOSPHOKINASE 37 U/L (26-192); TROPONIN I < 0.02 NG/ML (< 0.10)
[2018-12-08 14:01] VITALS: BP 115/70
--- NOTE | 2018-12-08 22:41 | ECGEPIP ---
Stationary ECG Study 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
--- NOTE | 2018-12-10 08:35 | ECGEPIP ---
Stationary ECG Study [facility] - ED Test Date: 2018-12-08 Pat Name: JACQUES MILLER Department: Room: - Gender: F Crate Icer: wei : 1985 Requested By: Mukul Brian Order Number: [id number] Reading MD: Sheeba Ventura Measurements Intervals [place] Rate: 80 P: 65 AK: 139 QRS: 58 QRSD: 88 T: 27 QT: 366 QTc: 425 Interpretive Statements SINUS RHYTHM SIMILAR 12/08/18 Electronically Signed On 12-10-2018 8:35:14 EST by Sheeba Ventura
== END 2018-12-08 14:05 | disposition home or self-care (01) ==
LOC: M ED 08:00
DX: R07.89 Other chest pain (principal); I95.1 Orthostatic hypotension; R06.02 Shortness of breath; E11.9 Type 2 diabetes mellitus without complications; F41.9 Anxiety disorder, unspecified; F32.9 Major depressive disorder, single episode, unspecified; Z82.49 Family history of ischemic heart disease and other diseases of the circulatory system; Z91.011 Allergy to milk products; Z88.8 Allergy status to other drugs, medicaments and biological substances; J30.9 Allergic rhinitis, unspecified; Z79.2 Long term (current) use of antibiotics
CPT/HCPCS: 71045; 71275; 80048; 80076; 82550; 82553; 83690; 84439; 84443; 84484; 84703; 85025; 85379; 93005; 93041; 94760; 96361; 96374; 96375; 99285; J2270; J2405; Q9967

== ENCOUNTER 2018-12-09 19:15 | Emergency (ER) | payer OTHER ==
[~2018-12-09] VITALS: Ht 154.9 cm; Wt 59.5 kg
[~2018-12-09 19:15] MED LIST changes: +AMOX875T
[2018-12-09] MEDS ORDERED: METOCLOPRAMIDE INJ 10MG/2ML VIAL (J2765) IV ONE (20:00)
[2018-12-09] MEDS ORDERED: NS 1,000 ML IV ONE (20:00)
[2018-12-09 20:15] LABS: BASO % 0.5 % (0.0-1.0); EOS # 0.1 10^3/uL (0.0-0.50); EOS % 0.8 % (0.0-3.0); HEMATOCRIT 40.8 % (36.0-47.0); HEMOGLOBIN 14.2 g/dl (12.0-15.5); LYMPH # 1.2 10^3/uL (1.5-4.5); LYMPH % 14.5 % (24.0-44.0); MEAN CORPUSCULAR HEMOGLOBIN 30.9 pg (27.0-33.0); MEAN CORPUSCULAR HGB CONC 34.8 g/dl (32.0-36.5); MEAN CORPUSCULAR VOLUME 88.7 fl (80.0-96.0); MONO # 0.4 10^3/uL (0.0-0.8); MONO % 5.1 % (0.0-5.0); NEUTROPHILS # 6.6 10^3/uL (1.8-7.7); NEUTROPHILS % 78.6 % (36.0-66.0); PLATELET COUNT, AUTOMATED 234 10^3/uL (150-450); WHITE BLOOD COUNT 8.4 10^3/uL (4.0-10.0)
[2018-12-09 20:36] LABS: ALT/SGPT 14 U/L (12-78); BILIRUBIN,DIRECT 0.3 MG/DL (0.0-0.2); BILIRUBIN,TOTAL 1.2 MG/DL (0.2-1.0); BLOOD UREA NITROGEN 7 MG/DL (7-18); CALCIUM LEVEL 8.7 MG/DL (8.5-10.1); CARBON DIOXIDE LEVEL 27 MEQ/L (21-32); CHLORIDE LEVEL 104 MEQ/L (98-107); CREATININE FOR GFR 0.66 MG/DL (0.55-1.30); GLOMERULAR FILTRATION RATE > 60.0 (>60); GLUCOSE, FASTING 96 MG/DL (70-100); LIPASE 94 U/L (73-393); POTASSIUM SERUM 4.1 MEQ/L (3.5-5.1); SODIUM LEVEL 138 MEQ/L (136-145); TOTAL PROTEIN 7.1 GM/DL (6.4-8.2)
[2018-12-09 21:44] LABS: APPEARANCE, URINE CLOUDY (CLEAR); BACTERIA, URINE AUTO NEGATIVE (NEGATIVE); BILIRUBIN, URINE AUTO NEGATIVE (NEGATIVE); BLOOD, URINE BLOOD NEGATIVE (NEGATIVE); COLOR, URINE YELLOW (YELLOW); GLUCOSE, URINE (UA) AUTO NEGATIVE (NEGATIVE); KETONE, URINE AUTO NEGATIVE (NEGATIVE); LEUKOCYTE ESTERASE, URINE AUTO 1+ (NEGATIVE); MUCUS, URINE SMALL (NEGATIVE); NITRITE, URINE AUTO NEGATIVE (NEGATIVE); PROTEIN, URINE AUTO NEGATIVE (NEGATIVE); RBC, URINE AUTO 2 /HPF (0-3); SPECIFIC GRAVITY URINE AUTO 1.013 (1.002-1.035); SQUAMOUS EPITHELIAL CELL UR AU 49 /HPF (0-6); WBC, URINE AUTO 8 /HPF (0-3)
[2018-12-09] MEDS ORDERED: ACETAMINOPHEN 325 MG TAB PO ONE (22:30)
--- NOTE | 2018-12-10 00:17 | REPVR ---
EXAM: US Abdomen Limited, Right Upper Quadrant EXAM DATE/TIME: 12/09/2018 11:35 PM CLINICAL HISTORY: 33 years old, female; Signs and symptoms; Nausea and vomiting; Additional info: Biliary eval TECHNIQUE: Real-time ultrasound of the abdomen with image documentation. Examination was focused on the right upper quadrant. COMPARISON: No relevant prior studies available. FINDINGS: Liver: Mildly echogenic, suggesting fatty infiltration. Gallbladder: No gallstones. No gallbladder wall thickening or pericholecystic fluid. Negative sonographic Colvin's sign, as per the performing senior design engineering specialist. Common bile duct: No stones. No ductal dilatation. Pancreas: Unremarkable as visualized. Right kidney: No mass. No definite stones. No hydronephrosis. IMPRESSION: 1. No acute sonographic findings. 2. Mild hepatic steatosis. Electronically signed by: Rafal Rodriguez On 12/10/2018 00:17:13 AM
[2018-12-10] MEDS ORDERED: REGL10TA6 PO (00:21)
[2018-12-10 00:47] VITALS: BP 114/72
== END 2018-12-10 00:49 | disposition home or self-care (01) ==
LOC: EDBD 19:15 → M ED 19:15
DX: K52.9 Noninfective gastroenteritis and colitis, unspecified (principal); Z88.8 Allergy status to other drugs, medicaments and biological substances; E73.9 Lactose intolerance, unspecified; J30.89 Other allergic rhinitis
CPT/HCPCS: 36415; 76705; 80048; 80076; 81001; 83605; 83690; 85025; 87086; 96374; 99284; J2765

== ENCOUNTER → 2018-12-13 | Outpatient (CLI) | payer OTHER ==
[~2018-12-13] MED LIST changes: +REGL10TA6 PO
[2018-12-13 09:59] LABS: BASO % 0.5 % (0.0-1.0); EOS # 0.1 10^3/uL (0.0-0.50); EOS % 2.2 % (0.0-3.0); HEMATOCRIT 39.3 % (36.0-47.0); HEMOGLOBIN 13.8 g/dl (12.0-15.5); LYMPH # 1.4 10^3/uL (1.5-4.5); LYMPH % 25.4 % (24.0-44.0); MEAN CORPUSCULAR HEMOGLOBIN 31.2 pg (27.0-33.0); MEAN CORPUSCULAR HGB CONC 35.1 g/dl (32.0-36.5); MEAN CORPUSCULAR VOLUME 88.7 fl (80.0-96.0); MONO # 0.5 10^3/uL (0.0-0.8); MONO % 9.4 % (0.0-5.0); NEUTROPHILS # 3.4 10^3/uL (1.8-7.7); NEUTROPHILS % 62.3 % (36.0-66.0); PLATELET COUNT, AUTOMATED 235 10^3/uL (150-450); RED BLOOD COUNT 4.43 10^6/uL (4.00-5.40); WHITE BLOOD COUNT 5.5 10^3/uL (4.0-10.0)
[2018-12-13 10:31] LABS: ALBUMIN 3.9 GM/DL (3.2-5.2); ALT/SGPT 14 U/L (12-78); BILIRUBIN,TOTAL 0.9 MG/DL (0.2-1.0); BLOOD UREA NITROGEN 8 MG/DL (7-18); CALCIUM LEVEL 8.7 MG/DL (8.5-10.1); CARBON DIOXIDE LEVEL 29 MEQ/L (21-32); CHLORIDE LEVEL 106 MEQ/L (98-107); CHOLESTEROL LEVEL 156 MG/DL (<200); CHOLESTEROL RISK RATIO 2.516 (<5); CREATININE FOR GFR 0.72 MG/DL (0.55-1.30); FREE T4 0.94 NG/DL (0.76-1.46); GLOMERULAR FILTRATION RATE > 60.0 (>60); GLUCOSE, FASTING 105 MG/DL (70-100); HDL CHOLESTEROL 62 MG/DL (>40); LDL CHOLESTEROL 82 MG/DL (<100); NON-HDL-C 94 MG/DL; POTASSIUM SERUM 4.4 MEQ/L (3.5-5.1); SODIUM LEVEL 138 MEQ/L (136-145); TRIGLYCERIDES LEVEL 62 MG/DL (<150)
--- NOTE | 2018-12-14 09:01 | REP ---
RIGHT SHOULDER, THREE VIEWS: There is no evidence of an acute fracture, dislocation or intrinsic bone disease. The joint spaces appear essentially normal. IMPRESSION: No fracture or dislocation. Electronically Signed by Filipe Ervin MD 12/14/2018 06:46 P
== END ==
LOC: M LAB 09:16
PROVIDERS: ATTEND Physician Assistant
DX: Z13.29 Encounter for screening for other suspected endocrine disorder (principal); M25.511 Pain in right shoulder

== ENCOUNTER → 2019-01-01 | Outpatient (REF) | payer OTHER ==
[2019-01-06 08:06] LABS: HPV HYBRID CAPTURE II Negative (Negative)
== END ==
LOC: M LAB REF 17:21
PROVIDERS: ATTEND Family Medicine
DX: Z12.4 Encounter for screening for malignant neoplasm of cervix (principal); Z11.51 Encounter for screening for human papillomavirus (HPV)
CPT/HCPCS: 87624; G0123

== ENCOUNTER 2019-01-30 14:08 | Emergency (ER) | payer OTHER ==
[~2019-01-30] VITALS: Ht 165.1 cm; Wt 62.5 kg
[2019-01-30 14:08] VITALS: BP 137/103
--- NOTE | 2019-01-30 14:51 | REP ---
Clinical: Right wrist pain Technique: AP, lateral, bilateral oblique views. Findings: The carpal bones, surrounding osseous structures, soft tissues, and joint spaces are normal. There is no evidence for acute fracture or dislocation. No subcutaneous emphysema or radiodense foreign body. Impression: Normal wrist series. No acute fracture or dislocation Electronically Signed by Jarvis Hughes MD 01/30/2019 02:43 P
--- NOTE | 2019-01-30 14:52 | REP ---
Clinical: Right hand pain Technique: AP, lateral, bilateral oblique views right hand . Findings: The osseous structures and joint spaces are intact and normal. There is no evidence for acute fracture or dislocation. Surrounding soft tissues are unremarkable. No subcutaneous emphysema or radiodense foreign body. Impression: Normal right hand series . No acute fracture or dislocation. Electronically Signed by Jarvis Hughes MD 01/30/2019 02:44 P
== END 2019-01-30 15:30 | disposition home or self-care (01) ==
LOC: M ED 14:08
DX: S60.221A Contusion of right hand, initial encounter (principal); Y04.8XXA Assault by other bodily force, initial encounter; Y92.89 Other specified places as the place of occurrence of the external cause; Y93.9 Activity, unspecified; Y99.0 Civilian activity done for income or pay; F32.9 Major depressive disorder, single episode, unspecified; J30.89 Other allergic rhinitis; Z88.8 Allergy status to other drugs, medicaments and biological substances

== ENCOUNTER 2019-03-17 09:03 | Emergency (ER) | payer OTHER ==
[~2019-03-17] VITALS: Ht 154.9 cm; Wt 61.4 kg
[2019-03-17] MEDS ORDERED: TRI-1TAB5 (09:14)
--- NOTE | 2019-03-17 09:48 | REP ---
Right elbow for views : There is no fracture or dislocation. Mineralization and joint spaces are normal. There are no calcifications or foreign bodies. Impression: Negative right elbow . Electronically Signed by Filipe Marroquin MD 03/17/2019 09:38 A
--- NOTE | 2019-03-17 10:04 | REP ---
RIGHT SHOULDER, THREE VIEWS: HISTORY: Injury. There is no acute fracture or dislocation. The joint spaces are normal in appearance. IMPRESSION: There is no acute fracture or dislocation. Electronically Signed by Bob Chance MD 03/17/2019 10:20 A
--- NOTE | 2019-03-17 10:08 | REP ---
RIGHT WRIST, FOUR VIEWS: HISTORY: Injury. There is no acute fracture or dislocation. The joint spaces are normal in appearance. IMPRESSION: There is no acute fracture or dislocation. Electronically Signed by Bob Chance MD 03/17/2019 10:20 A
[2019-03-17] MEDS ORDERED: CYCL10TA PO (11:12)
[2019-03-17] MEDS ORDERED: ACETAMINOPHEN 500 MG TAB PO ONE (11:15)
[2019-03-17 11:23] VITALS: BP 136/71
== END 2019-03-17 11:25 | disposition home or self-care (01) ==
LOC: M ED 09:03
DX: M25.511 Pain in right shoulder (principal); M79.601 Pain in right arm; M25.531 Pain in right wrist; Z79.3 Long term (current) use of hormonal contraceptives; Z88.8 Allergy status to other drugs, medicaments and biological substances

== ENCOUNTER 2019-06-17 07:42 | Emergency (ER) | payer OTHER ==
[~2019-06-17] VITALS: Ht 154.9 cm; Wt 59.4 kg
[~2019-06-17 07:42] MED LIST changes: +CYCL10TA PO; +TRI-1TAB5
[2019-06-17] MEDS ORDERED: NS 1,000 ML IV ONE (08:15)
[2019-06-17 08:30] LABS: BASO % 0.3 % (0.0-1.0); EOS # 0.1 10^3/uL (0.0-0.50); EOS % 0.5 % (0.0-3.0); HEMATOCRIT 41.1 % (36.0-47.0); HEMOGLOBIN 14.2 g/dl (12.0-15.5); LYMPH # 0.7 10^3/uL (1.5-4.5); LYMPH % 6.6 % (24.0-44.0); MEAN CORPUSCULAR HEMOGLOBIN 31.3 pg (27.0-33.0); MEAN CORPUSCULAR HGB CONC 34.5 g/dl (32.0-36.5); MEAN CORPUSCULAR VOLUME 90.5 fl (80.0-96.0); MONO # 0.6 10^3/uL (0.0-0.8); NEUTROPHILS # 8.4 10^3/uL (1.8-7.7); NEUTROPHILS % 86.3 % (36.0-66.0); PLATELET COUNT, AUTOMATED 198 10^3/uL (150-450); RED BLOOD COUNT 4.54 10^6/uL (4.00-5.40); WHITE BLOOD COUNT 9.8 10^3/uL (4.0-10.0)
[2019-06-17] MEDS ORDERED: ONDANSETRON 4MG/2ML VIAL (J2405) IV ONE (08:30)
[2019-06-17 08:37] LABS: ALBUMIN 3.8 GM/DL (3.2-5.2); ALT/SGPT 21 U/L (12-78); BILIRUBIN,DIRECT 0.4 MG/DL (0.0-0.2); BILIRUBIN,TOTAL 1.4 MG/DL (0.2-1.0); BLOOD UREA NITROGEN 7 MG/DL (7-18); CALCIUM LEVEL 8.8 MG/DL (8.5-10.1); CARBON DIOXIDE LEVEL 26 MEQ/L (21-32); CHLORIDE LEVEL 104 MEQ/L (98-107); CREATININE FOR GFR 0.91 MG/DL (0.55-1.30); GLOMERULAR FILTRATION RATE > 60.0 (>60); GLUCOSE, FASTING 109 MG/DL (70-100); LIPASE 93 U/L (73-393); POTASSIUM SERUM 4.3 MEQ/L (3.5-5.1); SODIUM LEVEL 138 MEQ/L (136-145); TOTAL PROTEIN 7.4 GM/DL (6.4-8.2)
[2019-06-17] MEDS ORDERED: ISOVUE-370 76% 100ML VIAL (Q9967) As Ordered ONE (08:53)
--- NOTE | 2019-06-17 10:17 | REP ---
REASON: Right lower quadrant pain. COMPARISON: None. CONTRAST: 100 mL Isovue 370. The lung bases are clear. The liver, gallbladder, spleen, pancreas, adrenal glands, and left kidney are unremarkable. In the right renal cortex there are two low density lesions both having water Hounsfield unit readings both consistent with subcentimeter sized cysts. The abdominal aorta and paraaortic regions are within normal limits. No free fluid or free air is in the abdomen. The bowel loops and their mesenteries are within normal limits. The appendix is unremarkable in appearance. There is no intra-abdominal mass or adenopathy. CT PELVIS: There is no free fluid or free air. The bowel loops and their mesenteries are within normal limits. There is no mass or adenopathy. Although CT poorly evaluates the ovaries they appear symmetric bilaterally. Bone window technique throughout the exam shows the osseous structures to be within normal limits. IMPRESSION: CT findings are within normal limits. Electronically Signed by Hugo Parsons DO 06/17/2019 12:31 P
[2019-06-17 10:56] LABS: AMORPHOUS SEDIMENT SMALL (NEGATIVE); APPEARANCE, URINE CLEAR (CLEAR); BACTERIA, URINE AUTO 1+ (NEGATIVE); BILIRUBIN, URINE AUTO NEGATIVE (NEGATIVE); BLOOD, URINE BLOOD NEGATIVE (NEGATIVE); COLOR, URINE YELLOW (YELLOW); GLUCOSE, URINE (UA) AUTO NEGATIVE (NEGATIVE); KETONE, URINE AUTO TRACE mg/dL (NEGATIVE); LEUKOCYTE ESTERASE, URINE AUTO 1+ (NEGATIVE); MUCUS, URINE SMALL (NEGATIVE); NITRITE, URINE AUTO POSITIVE (NEGATIVE); PROTEIN, URINE AUTO NEGATIVE (NEGATIVE); RBC, URINE AUTO 5 /HPF (0-3); SPECIFIC GRAVITY URINE AUTO 1.055 (1.002-1.035); SQUAMOUS EPITHELIAL CELL UR AU 1 /HPF (0-6); UROBILINOGEN, URINE AUTO 0.2 mg/dL (0.0-2.0); WBC, URINE AUTO 4 /HPF (0-3)
--- NOTE | 2019-06-17 11:09 | REP ---
REASON: Right upper quadrant pain. Multiple ultrasonographic images of the liver show the hepatic parenchymal echo pattern to be within normal limits. There is no intrahepatic or extrahepatic ductal dilatation. The common bile duct measures 3 mm. Multiple ultrasonographic image of the gallbladder show low level echoes within the gallbladder lumen, which are mobile. There is no evidence of pericholecystic edema or gallbladder wall thickening. There are no choleliths. The imaged portion of the pancreas is within normal limits. The imaged portion of the right kidney shows diffuse increased echoes throughout the renal sinus area not casting acoustic shadows. IMPRESSION: 1. There is sludge within the gallbladder. 2. Findings involving the right kidney as described above. I cannot rule out the possibility of medullary sponge kidney. Electronically Signed by Hugo Parsons DO 06/17/2019 12:32 P
[2019-06-17] MEDS ORDERED: CIPROFLOXACIN 500 MG TAB PO ONE (12:00)
[2019-06-17] MEDS ORDERED: CIPR-249 PO (12:08)
[2019-06-17] MEDS ORDERED: ACETAMINOPHEN 325 MG TAB PO ONE (12:45)
[2019-06-17 12:55] VITALS: BP 124/71
--- NOTE | 2019-06-21 20:25 | ED PDOC ---
Post-Departure Follow-Up dr ivy nelson faxed formal report of gb us for fu Mukul Young MD Jun 21, 2019 20:25
== END 2019-06-17 12:57 | disposition home or self-care (01) ==
LOC: M ED 07:42
DX: N39.0 Urinary tract infection, site not specified (principal); R93.421 Abnormal radiologic findings on diagnostic imaging of right kidney; K83.9 Disease of biliary tract, unspecified; Z79.899 Other long term (current) drug therapy; Z88.6 Allergy status to analgesic agent
CPT/HCPCS: 74177; 76705; 80048; 80076; 81001; 83690; 84702; 85025; 86850; 86900; 86901; 96361; 96374; 99284; J2405; Q9967

== ENCOUNTER → 2019-06-23 | Outpatient (REF) | payer OTHER ==
[~2019-06-23] MED LIST changes: +CIPR-249 PO
== END ==
LOC: M LAB REF 16:58
PROVIDERS: ATTEND Physician Assistant
DX: N10 Acute pyelonephritis (principal)

== ENCOUNTER → 2019-10-14 | Outpatient (REF) | payer OTHER | LOC: M LAB REF 09:38 | PROVIDERS: ATTEND Physician Assistant | DX: N39.0 Urinary tract infection, site not specified (principal) ==

== ENCOUNTER → 2020-02-29 | Outpatient (CLI) | payer OTHER ==
[~2020-02-29] MED LIST changes: +CYCL-707 PO; -CYCL10TA PO; +NORG1TAB37; -TRI-1TAB5
== END ==
LOC: M LABSMTC 13:00
PROVIDERS: ATTEND Family Medicine
DX: Z11.59 Encounter for screening for other viral diseases (principal); Z20.828 Contact with and (suspected) exposure to other viral communicable diseases

== ENCOUNTER 2020-06-11 04:30 | Emergency (ER) | payer OTHER ==
[2020-06-11] MEDS ORDERED: methylPREDNISolone 125MG 2ML VIAL ONE (06:49)
== END 2020-06-11 06:52 | disposition home or self-care (01) ==
LOC: M ED 04:30
DX: T78.40XA Allergy, unspecified, initial encounter (principal); Y92.9 Unspecified place or not applicable; Y93.9 Activity, unspecified; Z79.3 Long term (current) use of hormonal contraceptives; Z88.8 Allergy status to other drugs, medicaments and biological substances
CPT/HCPCS: 96372; 99283; J2930

== ENCOUNTER → 2020-09-28 | Outpatient (CLI) | payer OTHER ==
--- NOTE | 2020-09-28 11:34 | REP ---
INDICATION: CERVICAL DDD W/ PAIN. COMPARISON: None. TECHNIQUE: Multiple sequences obtained in the sagittal and axial planes. FINDINGS: Cervical vertebral bodies normal in height and well aligned. There is slight reversal of the normal cervical lordosis which may indicate muscle spasm or could be due to patient positioning. There is no prevertebral soft tissue swelling visualized cerebellum is unremarkable. The visualized brainstem and spinal cord demonstrate no abnormal signal. At the C5-6 disc space there is loss of water signal and mild disc degeneration with no disc space narrowing. At that level there is a central disc herniation with superior subligamentous extrusion to the mid body of C5. The ligament is elevated by about 2 mm with T2 hyperintensity suggesting possible annular fissure. The disc protrusion measures about 8 mm. There is minimal impression upon the anterior cord. There is no nerve root compression. The other cervical disc levels demonstrate no significant disc disease and no spinal stenosis. IMPRESSION: At the C5-6 disc space there is loss of water signal and mild disc degeneration with no disc space narrowing. At that level there is a central disc herniation with superior subligamentous extrusion to the mid body of C5. The ligament is elevated by about 2 mm with T2 hyperintensity suggesting possible annular fissure. The disc protrusion measures about 8 mm. There is minimal impression upon the anterior cord. There is no nerve root compression. A preliminary report was provided by [facility] at the time of the exam. <Electronically signed by Filipe Ervin > 09/28/20 [id number]
== END ==
LOC: M RAD 07:37
PROVIDERS: ATTEND Physician Assistant Surgical
DX: M50.322 Other cervical disc degeneration at C5-C6 level (principal)

== ENCOUNTER → 2022-02-14 | Outpatient (CLI) | payer OTHER ==
[2022-02-14 10:17] LABS: BASO # 0.1 10^3/uL (0.0-0.2); BASO % 0.8 % (0.0-1.0); EOS # 0.2 10^3/uL (0.0-0.5); EOS % 2.8 % (0.0-3.0); HEMATOCRIT 43.1 % (36.0-47.0); HEMOGLOBIN 14.7 g/dl (12.0-15.5); LYMPH # 1.4 10^3/uL (1.5-5.0); LYMPH % 22.6 % (24.0-44.0); MEAN CORPUSCULAR HEMOGLOBIN 31.2 pg (27.0-33.0); MEAN CORPUSCULAR HGB CONC 34.1 g/dl (32.0-36.5); MEAN CORPUSCULAR VOLUME 91.5 fl (80.0-96.0); MONO # 0.5 10^3/uL (0.0-0.8); MONO % 7.2 % (2.0-8.0); NEUTROPHILS # 4.2 10^3/uL (1.5-8.5); NEUTROPHILS % 66.3 % (36.0-66.0); PLATELET COUNT, AUTOMATED 243 10^3/uL (150-450); RED BLOOD COUNT 4.71 10^6/uL (4.00-5.40); WHITE BLOOD COUNT 6.4 10^3/uL (4.0-10.0)
[2022-02-14 11:03] LABS: HEMOGLOBIN A1c 5.1 %
[2022-02-14 11:11] LABS: ALT/SGPT 21 U/L (12-78); BILIRUBIN,TOTAL 1.3 MG/DL (0.2-1.0); BLOOD UREA NITROGEN 9 MG/DL (7-18); CALCIUM LEVEL 9.5 MG/DL (8.5-10.1); CARBON DIOXIDE LEVEL 27 MEQ/L (21-32); CHLORIDE LEVEL 105 MEQ/L (98-107); CHOLESTEROL LEVEL 182 MG/DL (<200); CHOLESTEROL RISK RATIO 2.888 (<5); CREATININE FOR GFR 0.63 MG/DL (0.55-1.30); FREE T4 0.78 NG/DL (0.76-1.46); GLOMERULAR FILTRATION RATE > 60.0 (>60); GLUCOSE, FASTING 96 MG/DL (70-100); HDL CHOLESTEROL 63 MG/DL (>40); LDL CHOLESTEROL 95 MG/DL (<100); NON-HDL-C 119 MG/DL; POTASSIUM SERUM 6.8 MEQ/L (3.5-5.1); SODIUM LEVEL 136 MEQ/L (136-145); TOTAL 25(OH) VITAMIN D 11.9 NG/ML (30.0-100.0); TOTAL PROTEIN 7.9 GM/DL (6.4-8.2); TRIGLYCERIDES LEVEL 122 MG/DL (<150)
== END ==
LOC: M LAB 09:18
PROVIDERS: ATTEND Physician Assistant
DX: Z13.220 Encounter for screening for lipoid disorders (principal)

== ENCOUNTER → 2022-02-14 | Outpatient (CLI) | payer OTHER ==
[2022-02-14 14:30] LABS: BLOOD UREA NITROGEN 9 MG/DL (7-18); CALCIUM LEVEL 9.9 MG/DL (8.5-10.1); CARBON DIOXIDE LEVEL 27 MEQ/L (21-32); CHLORIDE LEVEL 106 MEQ/L (98-107); CREATININE FOR GFR 0.64 MG/DL (0.55-1.30); GLOMERULAR FILTRATION RATE > 60.0 (>60); GLUCOSE, FASTING 73 MG/DL (70-100); SODIUM LEVEL 139 MEQ/L (136-145)
== END ==
LOC: M LAB 12:55
PROVIDERS: ATTEND Physician Assistant
DX: Z13.29 Encounter for screening for other suspected endocrine disorder (principal)

== ENCOUNTER → 2023-04-04 | Outpatient (CLI) | payer OTHER ==
[~2023-04-04] MED LIST changes: +ALBU2.5V10 INH; -ALBU83IN INH
[2023-04-04 08:40] LABS: BASO % 0.7 % (0.0-1.0); EOS # 0.2 10^3/uL (0.0-0.5); EOS % 3.7 % (0.0-3.0); HEMATOCRIT 40.7 % (36.0-47.0); HEMOGLOBIN 13.7 g/dl (12.0-15.5); LYMPH # 1.3 10^3/uL (1.5-5.0); LYMPH % 23.9 % (24.0-44.0); MEAN CORPUSCULAR HEMOGLOBIN 30.4 pg (27.0-33.0); MEAN CORPUSCULAR HGB CONC 33.7 g/dl (32.0-36.5); MEAN CORPUSCULAR VOLUME 90.4 fl (80.0-96.0); MONO # 0.4 10^3/uL (0.0-0.8); MONO % 7.5 % (2.0-8.0); NEUTROPHILS # 3.6 10^3/uL (1.5-8.5); PLATELET COUNT, AUTOMATED 227 10^3/uL (150-450); WHITE BLOOD COUNT 5.6 10^3/uL (4.0-10.0)
[2023-04-04 09:10] LABS: ALBUMIN 3.9 G/DL (3.2-5.2); ALKALINE PHOSPHATASE 46 U/L (46-116); ALT/SGPT 30 U/L (7.0-40); AST/SGOT 27 U/L (<34); BILIRUBIN,TOTAL 0.9 MG/DL (0.3-1.2); BLOOD UREA NITROGEN 12 MG/DL (9-23); CALCIUM LEVEL 8.4 MG/DL (8.5-10.1); CARBON DIOXIDE LEVEL 27 MMOL/L (20-31); CHLORIDE LEVEL 105 MMOL/L (98-107); GLOMERULAR FILTRATION RATE > 60.0 (>60); GLUCOSE, FASTING 100 MG/DL (60-100); POTASSIUM SERUM 4.6 MMOL/L (3.5-5.1); SODIUM LEVEL 139 MMOL/L (136-145)
[2023-04-04 09:14] LABS: FREE T4 0.86 NG/DL (0.89-1.76)
[2023-04-04 09:15] LABS: TOTAL 25(OH) VITAMIN D 17.1 NG/ML (20.0-100.0)
[2023-04-04 09:19] LABS: HEMOGLOBIN A1c 5.2 % (4.0-6.0)
[2023-04-05 12:09] LABS: TESTOSTERONE FREE (DIRECT) 1.3 pg/mL (0.0-4.2)
== END ==
LOC: M LAB 08:09
PROVIDERS: ATTEND Physician Assistant
DX: E55.9 Vitamin D deficiency, unspecified (principal); Z13.29 Encounter for screening for other suspected endocrine disorder

== ENCOUNTER → 2023-06-26 | Outpatient (CLI) | payer OTHER | LOC: M WHC 08:29 | PROVIDERS: ATTEND Family Medicine | DX: N92.6 Irregular menstruation, unspecified (principal) ==